=== PATIENT | female | born 1975 | race Caucasian/White ===

== ENCOUNTER → 2023-08-01 07:35 | Outpatient (REF) | payer BC, SELFPAY | LOC: WDC 07:35 | PROVIDERS: ATTENDING PHYSICIAN Family Medicine | DX: Z12.31 Encounter for screening mammogram for malignant neoplasm of breast (principal) | CPT/HCPCS: 77063; 77067 ==

== ENCOUNTER 2023-08-24 07:52 | Emergency (ER) | payer BC, SELFPAY ==
[2023-08-24 07:53] VITALS: BP 134/85
--- NOTE | 2023-08-24 08:03 | ED.GENMED ---
History of Present Illness
General
Chief Complaint: Back Pain
Time Seen by Provider: 08/24/23 08:03
Travel History
Have you had any contact with someone who has COVID-19?: No
Do you have any symptoms of coronavirus? Fever > 100 degrees, chills, cough, shortness of breath, sore throat, loss of taste or smell, muscle aches, or headache?: No
History of Present Illness
History of Present Illness:
HPI: Patient presents with acute on chronic back pain. She has a history of scoliosis and has had rods placed in her back 1980s at [facility] and also approximately 30 years ago at another facility. Although she chronically has low back pain she is been
having increasing pain for the past week. The pain is in both sides of the low back. She think she has had some chills but no fevers. She had some urinary incontinence yesterday which concerned her so she came in here for further evaluation. She
reports no strength or sensory changes to the lower extremities.
EXAM:
GENERAL: Well appearing in no distress
HEENT: Moist oral mucosa
CARDIOVASCULAR: No murmurs, normal heart rate, regular rhythm, No chest wall tenderness
PULMONARY: No respiratory distress, breath sounds are clear and equal
ABDOMEN: Soft with no peritoneal signs, no tenderness
BACK: Large surgical scar midline thoracolumbar spine, no significant tenderness
NEUROLOGIC: Excellent strength all extremities, no coordination deficits, normal anal tone (ELEAZAR Mancera in the room)
PSYCHIATRIC: Appropriate mental status, normal insight and judgement
EXTREMITIES: Nontender, no edema, moves all extremities equally
SKIN: No rash, no lesions
TIME OF INITIAL ENCOUNTER: 8:10 AM
NUMBER AND COMPLEXITY OF PROBLEMS ADDRESSED AT THE ENCOUNTER
� Chronic conditions affecting care: Low back pain, has uterine fibroids, Graves' disease
� Acute Exacerbation and/or Progression of Chronic Illness: This is an acute exacerbation of chronic
� Differential Diagnosis includes: Acute exacerbation of chronic low back pain, considered cauda equina syndrome given her history of urinary incontinence yesterday however she has excellent strength in the lower extremities,
postvoid residual is only 17 mL, and she has excellent anal tone on physical examination
AMOUNT AND/OR COMPLEXITY OF DATA TO BE REVIEWED AND ANALYZED
� I performed an independent evaluation of and my interpretation is:
EKG:
CT:
X-rays: X-ray of the sacrum unremarkable
Laboratory Studies: White count and hemoglobin and chemistries normal.
Other: MRI reviewed�see below
� Review of other/old records:
� Clinical information was obtained by an independent historian: None needed
� Prescriptions/Medications Considered but not given:
� Further testing considered but not performed:
RISK OF COMPLICATIONS AND/OR MORBIDITY OR MORTALITY OF PATIENT MANAGEMENT
� Social determinants of health affecting care: Lives at home
� Discussion with other providers: Discussed case with Dr. Magaña left-sided foraminal stenosis at L5-S1 along with extruded disc material noted
� Escalation of care including admission/observation vs risk of discharge considered: The patient was given Toradol for pain. As she reported some urinary incontinence yesterday, a bladder scan postvoid residual was obtained
which showed only 17 mL. She is status post hysterectomy and urinalysis shows no blood therefore I feel that ureteral stone is very unlikely along with the fact that her symptoms were bilateral. On reassessment at 1:30 PM, the patient appears
fairly comfortable. She states that she can follow-up with her pain management doctor, Dr. Fields. I have also given the contact information for Dr. Huerta as she used to see Dr. David Yun (retired).
Past History
Past History
ED Past Medical History: Other (Graves Disease) and Other (Recent MARYANNE/BSO, hypoglycemia, thoracic syrinx, �3, thyroid nodule)
ED Past Surgical History: Other ([place] rods)
Social History
Tobacco: Non-smoker
Alcohol: None
Personal:
Living: with family
Family History
Family History: Other (Father with MS at 47)
Phy Exam
Physical Exam
Physical Exam:
See HPI
Course
Orders/Labs/Results
Orders:
Orders
08/24/23 08:15
Ketorolac [Toradol] 15 mg IV NOW STA
08/24/23 08:18
Bladder Scan- Treatment ONCE
08/24/23 08:28
Basic Metabolic Panel Urgent
Complete Blood Count/With Diff Urgent
Urinalysis Reflex To Culture Urgent
Date Specimen was Collected: 08/24/23
Time Specimen was Collected: 08:26
08/24/23 09:20
MR Lumbar Without Contrast Urgent
Comment:
Reason For Exam: LBP urinary incontinence normal UA, [place] ok'd
Recent pill cam endoscopy?: No
08/24/23 12:18
CR Sacrum/coccyx Min 2 View Urgent
Comment:
Reason For Exam: pain
Abnormal Lab Results
08/24/23
08:28
RBC 4.09 L 10^6/uL
(4.20-5.40)
Hct 35.5 L %
(37.0-47.0)
MCH 31.1 H pg
(27.0-31.0)
Creatinine 0.5 L mg/dL
(0.6-1.0)
08/24/23 08:28
08/24/23 08:28
Vital Signs
Initial and Last Documented VS:
Initial Vital Signs
Temp Pulse Resp BP Pulse Ox
98.1 F 86 18 134/85 97
08/24/23 07:53 08/24/23 07:53 08/24/23 07:53 08/24/23 07:53 08/24/23 07:53
Last Documented Vital Signs
Temp Pulse Resp BP Pulse Ox
98.1 F 79 18 118/79 97
08/24/23 07:53 08/24/23 12:06 08/24/23 12:06 08/24/23 12:06 08/24/23 12:06
*Critical Care Note
Total Time (30-74mins, 75-104mins- exclusive of procedures): Not Applicable
ED Attending Note
-
Portions of this chart may have been created with voice recognition software.� Occasional wrong word or��sound alike� substitutions may have occurred due to the inherent limitations of voice recognition software.
Discharge Plan
Departure
Patient Disposition: Home (Routine Discharge)
Date of Disposition: 08/24/23
Time of Disposition: 13:48
Patient with high blood pressure during this ER visit?: Yes
Discharge Problem:
Low back pain
Instructions: Low Back Pain (DC)
Prescriptions:
New
oxycodone-acetaminophen [Percocet] 5-325 mg tablet
1 - 2 tab PO Q6HPRN PRN (Reason: pain) Qty: 14 0RF
No Action
cetirizine 10 MG tablet
10 mg PO PRN PRN (Reason: allergies)
ascorbic acid (vitamin C) [Vitamin C] 500 MG tablet
500 mg PO DAILY
methimazole 5 MG tablet
5 mg PO DAILY
melatonin 5 MG tablet
5 - 10 mg PO HS
bfldtgml-mzsz-JZ-calcium-mins [Women's Daily Formula] 1 EACH tablet
1 ea PO DAILY
mecobalamin (vitamin B12) [B12 Active] 1,000 MCG tablet,chewable
1,000 mcg PO DAILY
acetaminophen 325 MG tablet
325 mg PO Q4HPRN PRN (Reason: pain)
ibuprofen 600 MG tablet
600 mg PO Q4H PRN (Reason: pain) Qty: 30 0RF
Referrals:
Anthony Huerta MD [Active] -
Nico Pleitez MD [Family Provider] -
Activity Restrictions/Additional Instructions:
Basic blood work is normal. Urinalysis shows no sign of blood or infection. MRI shows 'bilateral L5 pars defect causing a 6 mm anterolisthesis of L5 on S1 which contributes to severe left and moderate right foraminal stenosis at L5/S1, there is
extruded disc material in the midline measuring 6 mm which tracks superiorly along the posterior margin of L5 vertebral body�the extruded disc material causes mild flattening of the thecal sac'. There is also 'L2-3 moderate right foraminal stenosis
secondary to facet osteoarthritis'. I do not see any clear abnormality on the sacrum x-ray. I have given you the contact information for Dr. Huerta. I also recommend that you follow-up with your pain management doctor. If you take Percocet I
recommend you take something like MiraLAX now prevent constipation while on narcotic pain medication. You could also take Motrin for pain as well.
Interventions
Interventions:
*Risk Screen - Suicide Last Done: 08/24/23 07:53
*General Assessment Last Done: 08/24/23 07:53
*Neglect/Abuse Screening Last Done: 08/24/23 07:53
ED- Fall Risk Assessment Last Done: 08/24/23 09:13
ED-Musculoskeletal Assessment Last Done: 08/24/23 09:13
Discharge Date and Time
Print Language: EQUATORIAL GUINEAN
[2023-08-24] MEDS: TORADOL 15 MG IV ×2 (08:35→14:03)
[2023-08-24 08:47] LABS: % Basophils 0.5 % (0-2); % Eosinophils 1.5 % (0-6); % Immature Granulocytes 0.3 % (0-0.5); % Lymphocytes 23.2 % (20.5-51.1); % Monocytes 5.5 % (1.7-9.3); Absolute Eosinophils 0.1 10^3/uL (0-0.7); Absolute Lymphocytes 1.4 10^3/uL (1.2-3.4); Absolute Monocytes 0.3 10^3/uL (0.1-0.6); Hematocrit 35.5 % (37.0-47.0); Hemoglobin 12.7 g/dL (12.0-16.0); Mean Corp Hgb Conc. 35.8 g/dL (33.0-37.0); Mean Corpuscular Hgb 31.1 pg (27.0-31.0); Mean Corpuscular Volume 86.8 fL (81.0-99.0); Mean Platelet Volume 8.9 fL (7.4-10.4); Nucleated Red Blood Cells % 0 %; Platelet Count 365 10^3/uL (130-400); Red Blood Cell Count 4.09 10^6/uL (4.20-5.40); White Blood Cell Count 5.9 10^3/uL (4.8-10.8)
[2023-08-24 09:01] LABS: Blood Urea Nitrogen 12 mg/dl (7-17); Calcium 9.1 mg/dl (8.4-10.2); Carbon Dioxide 24 mmol/L (22-30); Chloride 106 mmol/L (98-107); Glucose 96 mg/dl (70-99); Potassium 4.2 mmol/L (3.5-5.1); Sodium 138 mmol/L (135-145); Urine Albumin Negative (Neg - Trace); Urine Bilirubin Negative (Negative); Urine Character Clear (Clear); Urine Color Yellow; Urine Glucose Negative (Negative); Urine Ketone Negative (Negative); Urine Leukocyte Negative (Negative); Urine Nitrite Negative (Negative); Urine Occult Blood Negative (Negative); Urine Urobilinogen Negative (Neg - 1+); eGFR > 60.00
[2023-08-24 10:25] VITALS: BP 130/82
[2023-08-24 12:06] VITALS: BP 118/79
[2023-08-24 14:07] VITALS: BP 128/82
== END 2023-08-24 14:17 | disposition home or self-care (01) ==
LOC: EMR 07:52
PROVIDERS: EMERGENCY PHYSICIAN Emergency Medicine; FAMILY PHYSICIAN Family Medicine
DX: M54.50 Low back pain, unspecified (principal); R68.83 Chills (without fever); R32 Unspecified urinary incontinence; R03.0 Elevated blood-pressure reading, without diagnosis of hypertension; M41.9 Scoliosis, unspecified; G89.29 Other chronic pain; E05.00 Thyrotoxicosis with diffuse goiter without thyrotoxic crisis or storm
CPT/HCPCS: 99284; 96374; 51798; 96376; 72148; 72220; 80048; 81003; 85025

== ENCOUNTER → 2023-09-27 12:37 | Outpatient (REF) | payer BC, SELFPAY | LOC: RAD 12:37 | PROVIDERS: ATTENDING PHYSICIAN Family Medicine | DX: M85.80 Other specified disorders of bone density and structure, unspecified site (principal) | CPT/HCPCS: 77080 ==

== ENCOUNTER → 2023-09-27 19:21 | Outpatient (REF) | payer BC, SELFPAY | LOC: MRI 19:21 | PROVIDERS: ATTENDING PHYSICIAN Physician Assistant Surgical; FAMILY PHYSICIAN Family Medicine | DX: M54.50 Low back pain, unspecified (principal); M54.2 Cervicalgia; M41.86 Other forms of scoliosis, lumbar region | CPT/HCPCS: 72141 ==

== ENCOUNTER → 2024-01-09 08:09 | Outpatient (REF) | payer BC, SELFPAY | LOC: RAD 08:09 | PROVIDERS: ATTENDING PHYSICIAN Internal Medicine Endocrinology, Diabetes & Metabolism; FAMILY PHYSICIAN Family Medicine | DX: E05.00 Thyrotoxicosis with diffuse goiter without thyrotoxic crisis or storm (principal) | CPT/HCPCS: 76536 ==

== ENCOUNTER → 2024-08-01 07:34 | Outpatient (REF) | payer BC, SELFPAY | LOC: WDC 07:34 | PROVIDERS: ATTENDING PHYSICIAN Obstetrics & Gynecology Gynecology; FAMILY PHYSICIAN Family Medicine | DX: Z12.31 Encounter for screening mammogram for malignant neoplasm of breast (principal) | CPT/HCPCS: 77063; 77067 ==

== ENCOUNTER → 2025-02-11 20:28 | Outpatient (REF) | payer BC, SELFPAY | LOC: MRI 20:28 | PROVIDERS: ATTENDING PHYSICIAN Physician Assistant Surgical; FAMILY PHYSICIAN Nurse Practitioner Family | DX: M54.16 Radiculopathy, lumbar region (principal); M54.50 Low back pain, unspecified; M41.9 Scoliosis, unspecified | CPT/HCPCS: 72148 ==